=== PATIENT | male | born 1960 | race African-American/Black ===

== ENCOUNTER 2016-10-12 18:11 | Emergency (ER) | payer OTHER ==
[~2016-10-12] VITALS: Ht 182.9 cm; Wt 108.4 kg
[~2016-10-12 18:11] MED LIST: MULT-208 PO; PHEN100C PO
[2016-10-12 19:30] LABS: BASO % 1 % (0-3); EOS % 6 % (0-3); HEMATOCRIT 43.6 % (39.0-53.0); HEMOGLOBIN 14.4 g/dL (13.0-17.5); LYMPH # 2.2 x10^3/uL (1.0-4.8); LYMPH % 43 % (24-48); MEAN CORPUSCULAR HEMOGLOBIN 30 pg (25-35); MEAN CORPUSCULAR HGB CONC 33 g/dL (31-37); MEAN CORPUSCULAR VOLUME 90 fL (79-100); MONO % 6 % (0-9); NEUT % 44 % (31-73); PLATELET COUNT 197 x10^3/uL (140-400); RED BLOOD COUNT 4.85 x10^6/uL (4.30-5.70); RED CELL DISTRIBUTION WIDTH 13.5 % (11.5-14.5)
[2016-10-12] MEDS ORDERED: ASPIRIN 81 MG TAB.CHEW PO ONE (19:30)
[2016-10-12 19:38] LABS: ANION GAP 10 (6-14); BLOOD UREA NITROGEN 20 mg/dL (8-26); CALCIUM 8.7 mg/dL (8.5-10.1); CARBON DIOXIDE 26 mmol/L (21-32); CHLORIDE 109 mmol/L (98-107); CREATININE 1.2 mg/dL (0.7-1.3); GFR 75.8; GLUCOSE 109 mg/dL (70-99); POTASSIUM 3.9 mmol/L (3.5-5.1); SODIUM 145 mmol/L (136-145)
[2016-10-12 19:43] LABS: ALK PHOS 61 U/L (46-116); ALT (SGPT) 34 U/L (16-63); AST (SGOT) 19 U/L (15-37); DIRECT BILIRUBIN < 0.1 mg/dL (0.0-0.2); TOTAL BILIRUBIN 0.2 mg/dL (0.2-1.0); TOTAL PROTEIN 7.2 g/dL (6.4-8.2)
[2016-10-12 23:23] VITALS: BP 107/67
--- NOTE | 2016-10-12 23:37 | PHYS DOC ---
Past Medical History Past Medical History: Seizure Past Surgical History: Other Additional Past Surgical Histo: R ankle frx repair Additional Information: quit 14 years ago Alcohol Use: None Drug Use: None Adult General Chief Complaint Chief Complaint: CHEST PAIN HPI HPI 56-year-old male presenting to the emergency department with chest pain. He describes the pain as cramping in the substernal/epigastric area. He reports it being present for about 3-4 days. It is an aching burning pain that radiates to the back. It is worse with laying down. It is improved with exertion. He denies nausea vomiting. He endorses feeling mildly sweaty every once a while. He denies high blood pressure. He denies family history of blood clotting disorders , personal history of blood clotting disorders, hemoptysis, unilateral leg swelling, recent plane ride. Review of Systems Review of Systems ROS negative for abdominal pain nausea or vomiting. Positive for chest pain. All other review of systems is negative unless otherwise noted in history of present illness. Current Medications Current Medications Current Medications Medications (Trade) Dose Ordered Sig/Bibi Start Time Stop Time Status Last Admin Dose Admin Aspirin (Children'S Aspirin) 324 mg 1X ONCE 10/12/16 19:30 10/12/16 19:31 DC Allergies Allergies Allergies Coded Allergies Type Severity Reaction Last Updated Verified No Known Allergies Allergy Unknown 06/13/15 Yes Physical Exam Physical Exam Constitutional: Well developed, well nourished, no acute distress, non-toxic appearance. HENT: Normocephalic, atraumatic, bilateral external ears normal, oropharynx moist, no oral exudates, nose normal. [] Eyes: PERRLA, EOMI, conjunctiva normal, no discharge. Neck: Normal range of motion, no tenderness, supple, no stridor. [] Cardiovascular:Heart rate regular rhythm, no murmur [] Lungs & Thorax: Bilateral breath sounds clear to auscultation Abdomen: Bowel sounds normal, soft, no tenderness, no masses, no pulsatile masses. [] Skin: Warm, dry, no erythema, no rash. [] Back: No tenderness, no CVA tenderness. Extremities: No tenderness, no cyanosis, no clubbing, ROM intact, no edema. [] Neurologic: Alert and oriented X 3, normal motor function, normal sensory function, no focal deficits noted. Psychologic: Affect normal, judgement normal, mood normal. [] Current Patient Data Vital Signs Vital Signs Date Time Temp Pulse Resp B/P Pulse Ox O2 Delivery O2 Flow Rate FiO2 10/12/16 21:23 70 16 112/75 98 Room Air 10/12/16 18:25 98.5 98.5 Lab Values Laboratory Tests Test 10/12/16 18:28 White Blood Count 5.0x10^3/uL (4.0-11.0) Red Blood Count 4.85x10^6/uL (4.30-5.70) Hemoglobin 14.4g/dL (13.0-17.5) Hematocrit 43.6% (39.0-53.0) Mean Corpuscular Volume 90fL (79-100) Mean Corpuscular Hemoglobin 30pg (25-35) Mean Corpuscular Hemoglobin Concent 33g/dL (31-37) Red Cell Distribution Width 13.5% (11.5-14.5) Platelet Count 197x10^3/uL (140-400) Neutrophils (%) (Auto) 44% (31-73) Lymphocytes (%) (Auto) 43% (24-48) Monocytes (%) (Auto) 6% (0-9) Eosinophils (%) (Auto) 6% (0-3) H Basophils (%) (Auto) 1% (0-3) Neutrophils # (Auto) 2.2x10^3uL (1.8-7.7) Lymphocytes # (Auto) 2.2x10^3/uL (1.0-4.8) Monocytes # (Auto) 0.3x10^3/uL (0.0-1.1) Eosinophils # (Auto) 0.3x10^3/uL (0.0-0.7) Basophils # (Auto) 0.0x10^3/uL (0.0-0.2) Sodium Level 145mmol/L (136-145) Potassium Level 3.9mmol/L (3.5-5.1) Chloride Level 109mmol/L (98-107) H Carbon Dioxide Level 26mmol/L (21-32) Anion Gap 10 (6-14) Blood Urea Nitrogen 20mg/dL (8-26) Creatinine 1.2mg/dL (0.7-1.3) Estimated GFR (Cockcroft-Gault) 75.8 Glucose Level 109mg/dL (70-99) H Calcium Level 8.7mg/dL (8.5-10.1) Total Bilirubin 0.2mg/dL (0.2-1.0) Direct Bilirubin < 0.1mg/dL (0.0-0.2) Aspartate Amino Transferase (AST) 19U/L (15-37) Alanine Aminotransferase (ALT) 34U/L (16-63) Alkaline Phosphatase 61U/L (46-116) Troponin I Quantitative < 0.017ng/mL (0.000-0.055) BY-Idi-D-Type Natriuretic Peptide 7pg/mL (0-124) Total Protein 7.2g/dL (6.4-8.2) Albumin 4.0g/dL (3.4-5.0) Lipase 149U/L (73-393) Laboratory Tests 10/12/16 18:28 Laboratory Tests 10/12/16 18:28 EKG EKG EKG shows sinus rhythm with a regular rate. [place] mildly leftward. Intervals within normal limits. ST segments congruent. Radiology/Procedures Radiology/Procedures [] Chest x-ray shows no obvious infiltrate or pneumothorax. Course & Med Decision Making Course & Med Decision Making Pertinent Labs and Imaging studies reviewed. (See chart for details) [] 56-year-old male presenting to the emergency department with chest pain for greater than 24 hours. EKG unremarkable. Physical exam unremarkable. Blood work was sent which showed normal CBC. Chemistry panel unremarkable. Troponin within the reference range of normal. Patient pain improved in the emergency department. The patient was offered admission to the hospital however declined. The patient was subsequent discharged home to follow up with cardiology within 3 days for evaluation. Dragon Disclaimer Dragon Disclaimer This electronic medical record was generated, in whole or in part, using a voice recognition dictation system. Departure Departure Impression: Primary Impression: Chest pain Disposition: 01 HOME, SELF-CARE Condition: STABLE Referrals: TISHA KEEN (PCP) ANNCY TRONCOSO MD Patient Instructions: Chest Pain (Nonspecific) Additional Instructions: Thank you for allowing us to participate in your care today. Followup with Dr. Troncoso in 2-3 days. If you do not have a primary care provider you can ask for a list of our primary care providers. Return to the emergency department you have any new or concerning findings. This should be evaluated by the primary care physician and any necessary consulting services for continued management within a few days after discharge. Return to emergency room if you have any new or concerning symptoms including but not limited to fever, chills, nausea, vomiting, intractable pain, any new rashes, chest pain, shortness of air, uncontrolled bleeding, difficulty breathing, and/or vision loss. You may have been prescribed medication that can change in your level of thinking and ability to operate machinery. These medications include hydrocodone and Ativan. Also, Benadryl has been known to do this as well. Be sure to check with your pharmacist and ask if the medications you've prescribed can affect your level of consciousness. I recommend not operating heavy machinery or driving while on medication such as these. Scripts Aspirin 81 Mg Tab.chew1 Tab PO DAILY #14 TAB Ref 3 Prov:JOSSELIN GARCIA MD 10/12/16 JOSSELIN GARCIA MD Oct 12, 2016 23:37
[2016-10-12] MEDS ORDERED: ASPI81TA2 PO (23:39)
--- NOTE | 2016-10-13 08:43 | RAD ---
Portable chest, 10/12/2016: History: Chest pain Comparison is made to a study from 07/11/2010. The heart size and pulmonary vascularity are normal. There is a small unchanged nodule in the right upper lobe laterally compatible with a granuloma. No acute infiltrates are seen. There is no evidence of pleural fluid. IMPRESSION: No acute cardiopulmonary abnormality is detected.
--- NOTE | 2016-10-13 12:17 | EKG ---
[facility] [address] [place] [address] Test Date: 2016-10-12 Test Time: 18:22:14 Pat Name: SEJAL DELAROSA Department: Room: Gender: M Purchasing Administrative Assistant: : 1960 Requested By: JOSSELIN GARCIA Order Number: [id number] Reading MD: Claudia Mcmahon Measurements Intervals [place] Rate: 82 P: 32 NC: 174 QRS: -7 QRSD: 96 T: 39 QT: 374 QTc: 440 Interpretive Statements SINUS RHYTHM LEFTWARD AXIS OTHERWISE NORMAL ECG RI6.01 No previous ECG available for comparison Electronically Signed On 10-14-2016 20:56:23 PRODUCT DELIVERY SPECIALIST by Claudia Mcmahon
== END 2016-10-13 | disposition home or self-care (01) ==
LOC: ER 18:11
DX: R07.2 Precordial pain (principal); M54.89 Other dorsalgia; Z87.891 Personal history of nicotine dependence
CPT/HCPCS: 36415; 71010; 80048; 80076; 83690; 83880; 84484; 85027; 93005; 99285-25

== ENCOUNTER → 2017-04-26 | Outpatient (CLI) | payer OTHER ==
[~2017-04-26] MED LIST changes: +ASPI-630 PO
--- NOTE | 2017-04-26 10:16 | KCIC ---
Complete abdominal ultrasound dated 04/26/2017. No comparison available. Clinical indication: Epigastric pain. FINDINGS: Liver is of diffuse increased echogenicity, compatible with mild fatty infiltration. No apparent hepatic mass. Biliary tree normal in caliber. The common bile duct measures 3 mm. Gallbladder is normal in size and echogenicity. No gallbladder wall thickening or pericholecystic fluid. No gallstones are seen. Right kidney measures 10.3 cm in length. Left kidney measures 11.9 cm in length. No hydronephrosis. Spleen is homogeneous in echogenicity and measures 10.6 cm longitudinal dimension. Pancreas aorta and IVC are not well evaluated due to overlying bowel gas. No significant ascites. IMPRESSION: 1. No acute sonographic abnormality. 2. Hepatic steatosis. Electronically signed by: Flakito Potts MD (04/26/2017 10:12 AM) [facility]
== END | disposition home or self-care (01) ==
LOC: KCIC US 08:56
PROVIDERS: ATTEND Family Medicine
DX: K76.0 Fatty (change of) liver, not elsewhere classified (principal)
CPT/HCPCS: 76700

== ENCOUNTER → 2018-02-07 | Outpatient (CLI) | payer OTHER ==
[2018-02-07] MEDS: SINCALIDE 2.1 MCG in IV NORMAL SALINE 50ML 30 ML IV (10:46)
== END | disposition home or self-care (01) ==
LOC: NM 09:05
DX: R10.84 Generalized abdominal pain (principal); E78.5 Hyperlipidemia, unspecified; Z87.891 Personal history of nicotine dependence
CPT/HCPCS: 78226; 96374; 96375; A9537; J2805

== ENCOUNTER → 2021-01-31 | Outpatient (CLI) | payer OTHER ==
[~2021-01-31] MED LIST changes: +HYDR12.58 PO; +IOHEXOL 240 MG/ML 50ML VIAL. PO ONE; +IOHEXOL 300 MG/ML 100ML VIAL. IV ONE
--- NOTE | 2021-01-31 13:21 | KCIC ---
CT ABDOMEN+PELVIS W History: Weight loss, epigastric pain. Back pain after eating, diarrhea. Symptoms for couple years. Comparison: Complete abdomen ultrasound 04/26/2017 Technique: CT of the abdomen and pelvis with oral and intravenous contrast. Findings: Lower chest: Lung bases clear. General abdomen: No ascites. No free air. Liver : Normal in size and attenuation. No masses seen. Gallbladder/Biliary Tree: Normal gallbladder. No intrahepatic or extrahepatic biliary ductal dilatati on. Pancreas: Normal. Spleen: Normal in size and attenuation. Adrenal glands: Normal. Kidneys: No hydronephrosis or hydroureter. No renal masses identified. Gastrointestinal: Unremarkable stomach and small bowel. Normal appendix. Contrast extends to the asce nding colon. Minimal sigmoid diverticulosis. No evidence of diverticulitis. No colonic wall thickenin g or pericolonic inflammation. Lymph nodes: No lymphadenopathy. Vessels: Unremarkable. Pelvic Organs: Unremarkable prostate. No pelvic masses. The bladder is unremarkable. Soft tissues: Unremarkable. Bones: No acute or aggressive lesions. Multilevel lumbar facet hypertrophy. Bridging osteophytes at t he sacroiliac joints. Impression: 1. Minimal sigmoid diverticulosis without evidence for diverticulitis. 2. No acute findings in the abdomen and pelvis. ------ Exposure: One or more of the following individualized dose reduction techniques were utilized for thi s examination: 1. Automated exposure control 2. Adjustment of the mA and/or kV according to patient size 3. Use of iterative reconstruction technique. Electronically signed by: Agusto Castillo MD (01/31/2021 1:18 PM) [facility]
== END ==
LOC: KCIC CT 08:32
PROVIDERS: ATTEND Internal Medicine Gastroenterology
DX: K57.30 Diverticulosis of large intestine without perforation or abscess without bleeding (principal); R63.4 Abnormal weight loss; R19.4 Change in bowel habit
CPT/HCPCS: 74177; Q9966; Q9967